=== PATIENT | male | born 2000 | race Caucasian/White ===

== ENCOUNTER 2018-05-29 09:26 | Emergency (ER) | payer OTHER ==
[2018-05-29 10:46] VITALS: BP 136/69
--- NOTE | 2018-05-29 11:38 | UC ---
Knee Pain HPI - HPI Summary HPI Summary: Pt c/o left knee pain s/p jumping on trampoline and left knee "gave out" while jumping. Now c/o pain with weight bearing, bending knee, and walking up stairs. - History of Current Complaint Chief Complaint: UCLowerExtremity Stated Complaint: LT KNEE INJURY Time Seen by Provider: 05/29/18 11:29 Hx Obtained From: Patient Onset/Duration: Sudden Onset, Lasting Days, Still Present Severity Initially: Moderate Severity Currently: Moderate Pain Intensity: 6 Character: Dull, Aching Aggravating Factor(s): Movement, Weight Bearing, Prolonged Standing, Stairs Alleviating Factor(s): Rest Associated Signs And Symptoms: Positive: Swelling Able to Bear Weight: Yes - minimal - Risk Factors Septic Arthritis Risk Factor: Negative Gout Risk Factor: Male - Allergies/Home Medications Allergies/Adverse Reactions: Allergies Allergy/AdvReac Type Severity Reaction Status Date / Time No Known Allergies Allergy Verified 05/29/18 10:45 PMH/Surg Hx/FS Hx/Imm Hx Previously Healthy: Yes - Surgical History Surgical History: Yes Surgery Procedure, Year, and Place: tonsilectomy. tubes in ears. - Family History Known Family History: Negative: Cardiac Disease, Hypertension, Diabetes - Social History Occupation: Employed Full-time Lives: With Family Alcohol Use: Occasionally Substance Use Type: None Smoking Status (MU): Never Smoked Tobacco Have You Smoked in the Last Year: No - Immunization History Vaccination Up to Date: Yes Review of Systems All Other Systems Reviewed And Are Negative: Yes Constitutional: Positive: Negative Skin: Positive: Negative Eyes: Positive: Negative ENT: Positive: Negative Respiratory: Positive: Negative Cardiovascular: Positive: Negative Gastrointestinal: Positive: Negative Genitourinary: Positive: Negative Motor: Positive: Decreased ROM - left knee c/o pain with ROM Neurovascular: Positive: Negative Musculoskeletal: Positive: Arthralgia, Decreased ROM, Edema, Myalgia Neurological: Positive: Negative Psychological: Positive: Negative Is Patient Immunocompromised?: No Physical Exam Triage Information Reviewed: Yes Appearance: Well-Appearing Vital Signs: Initial Vital Signs Temp 98.3 F 05/29/18 10:41 Pulse 89 05/29/18 10:41 Resp 16 05/29/18 10:41 BP 136/69 05/29/18 10:41 Pulse Ox 99 05/29/18 10:41 Vital Signs Reviewed: Yes Eye Exam: Normal ENT Exam: Normal Dental Exam: Normal Neck exam: Normal Respiratory Exam: Normal Cardiovascular Exam: Normal Musculoskeletal: Positive: Strength Limited @ - left knee, c/o pain with rom,, ROM Limited @, Edema @ - generalized mild swelling,, Other: - negative drawer and varus, valgus Neurological Exam: Normal Psychological Exam: Normal Skin Exam: Normal Knee Pain Course/Dx - Course Course Of Treatment: Pt stated he had crutches at home and that he would f/u wiht orthopedic provider if no improvement - Differential Dx/Diagnosis Differential Diagnosis/HQI/PQRI: Internal Derangement Of Knee, Sprain, Strain Provider Diagnosis: Left knee sprain Discharge - Sign-Out/Discharge Documenting (check all that apply): Patient Departure All imaging exams completed and their final reports reviewed: No Studies - Discharge Plan Condition: Stable Disposition: HOME Patient Education Materials: Knee Pain (ED), Arthralgia (ED), R.I.C.E. Treatment (ED) Forms: *Gen. Provider Communication Referrals: Jonah Freedman MD [Medical Doctor] - If Needed No Primary Care Phys,NOPCP [Primary Care Provider] - Additional Instructions: Please follow up with an Orthopedic provider if your symptoms do not improve in the next 3-4 days. - Billing Disposition and Condition Condition: STABLE Disposition: Home - Attestation Statements Provider Attestation: Per institutional requirements, I have reviewed the chart, however, I was not consulted specifically or made aware of this patient by the midlevel provider. I did not personally evaluate, interact with , or disposition this patient.
== END 2018-05-29 11:48 | disposition home or self-care (01) ==
LOC: UCCORT 09:26
DX: S83.92XA Sprain of unspecified site of left knee, initial encounter (principal); X58.XXXA Exposure to other specified factors, initial encounter; Y93.44 Activity, trampolining; Y92.9 Unspecified place or not applicable
CPT/HCPCS: 99211; G0463

== ENCOUNTER → 2018-07-20 05:48 | Day surgery (SDC) | payer OTHER ==
[~2018-07-20 05:48] MED LIST: Buffered Lidocaine 1% SYRIN* 1 ML/SYRINGE INTRADERM ONE; Bupivacaine 0.5% W/EPI SDV* 30 ML VIAL ONE; Dexamethasone IV* 4 MG/ML 1 ML (4 MG) IV SLOW PU ONE; Dexamethasone IV* 4 MG/ML 1 ML (4 MG) ONE; DiMENhydriNATE IV* 50 MG/ML VIAL IV PUSH PRN; EPINEPHRINE 1 MG/ML 1 ML VIAL ONE; Famotidine IV* 10 MG/ML 2 ML (20 mg) IV ONE; Famotidine IV* 10 MG/ML 2 ML (20 mg) ONE; HYDROcodone/ACETAMIN 5-325 MG* 1 TAB PO PRN; KETAMINE HCL* 50 MG/ML 10 ML VIAL ONE; Ketorolac INJ* 30 MG/ML 1 ML VIAL ONE; Lactated Ringers 1000 ML Bag* 1,000 ML IV SCH; Lidocaine 2% PF * 5 ML VIAL ONE; Midazolam* 1 MG/ML 5 ML VIAL (5 MG) ONE; Naloxone* 0.4 MG/ML 1 ML VIAL IV PRN; Ondansetron INJ* 2 MG/ML VIAL ONE; Propofol* 10 MG/ML 20 ML BTL ONE; ceFAZolin 2 GM PREMIX in ORs 2 GM/50 ML BAG IVPB ONE; fentaNYL* 50 MCG/ML 2 ML VIAL (100 MCG VIAL) IV PRN; fentaNYL* 50 MCG/ML 2 ML VIAL (100 MCG VIAL) ONE; oxyCODONE/Acetamin 5/325 MG* TAB ONE
[2018-07-20] MEDS: oxyCODONE/Acetamin 5/325 MG* TAB PO PRN ×2 (11:37→12:16)
[2018-07-20 13:13] VITALS: BP 150/79
--- NOTE | 2018-07-21 00:02 | OP ---
OPERATIVE REPORT: DATE OF OPERATION: 07/20/18 - [facility] DATE OF : 89 SURGEON: Dr. Agutsin Kay. SCIENTIFIC PROCESS OPERATOR: AMADA Varma. A physician outreach assistant was required for the length of procedure for assistance with patient positioning, knee manipulation, retraction, and closure. ANESTHESIOLOGIST: Dr. Vaughn Galloway. ANESTHESIA: General anesthesia, local anesthesia with 10 cc of Marcaine 0.5% with epinephrine, placed into the subcutaneous tissues about the skin incisions. PRE-OP DIAGNOSES: 1. Left knee anterior cruciate ligament tears. 2. Left knee lateral meniscus tear. POST-OP DIAGNOSES: 1. Left knee anterior cruciate ligament tears. 2. Left knee lateral meniscus tear. OPERATIVE PROCEDURE: 1. Left knee arthroscopic anterior cruciate ligament reconstruction with bone patellar bone autograft. 2. Left knee arthroscopic lateral meniscus repair using All-Inside fixation. ANTIBIOTICS: Ancef 2 g IV. IV FLUIDS: 1300 cc crystalloid. TOURNIQUET TIME: 130 minutes at 300 mmHg, left thigh tourniquet. There was a brief tourniquet holiday during the procedure. UEDW-LX-COFK TIME: 160 minutes. SPECIMEN: None. IMPLANTS: Mitek Rigoberto and Rigoberto Leticia biocomposite screw 9 x 23 mm in the femur and 10 x 23 mm screw in the tibia. I also used 5 cc of cancellous allograft bone chips. FastFix 360 all-inside fixation x 2. COMPLICATIONS: None. ESTIMATED BLOOD LOSS: Minimal. INDICATIONS FOR PROCEDURE: The patient is a 18-year-old man, who works as banking paralegal, who plays baseball, who sustained an injury on a trampoline a month and half previously on 06/03/18. The patient was seen at an outside hospital and MRI diagnosed an ACL tear, some bone bruises, and a lateral meniscus tear. Reviewed a treatment options. The patient preferred surgery. Discussed risk and potential complications of surgery. Discussed graft types. We opted to go with a bone patellar bone autograft. Discussed lateral meniscus repair versus partial lateral meniscectomy. I told the patient that I would repair the meniscus if it seemed like it might heal, especially given his young age and high activity level. DESCRIPTION OF PROCEDURE: In preoperative holding, the patient signed a written consent. Operative extremity was marked in preoperative holding. The patient was taken back to the operating room and placed supine on operating room table. Sedated and intubated. A tourniquet was placed about the left proximal thigh. A collapsible lateral post was placed along the table. The left lower extremity was prepped and draped. Surgical time-out performed. Esmarch applied and tourniquet elevated to 300 mmHg. Made a left knee anterolateral knee arthroscopy portal using standard technique. I started my diagnostic arthroscopy. The patient had some synovitis visible in the patellofemoral compartment, but no articular cartilage injury in that compartment. Next, moved to the medial compartment. No meniscus injury. No articular cartilage damage. Next moved to the intercondylar notch. The ACL was grossly absent at first view. Next, moved to the lateral compartment. There was some clearly complex tearing and slightly inferior quality meniscus tissue at the posterior horn. The root was intact. The meniscus was intact just along posterior border of the popliteal hiatus. However, between these 2, it was torn. Established an anteromedial knee arthroscopy portal under direct visualization. I next debrided some synovitic tissue about the anterior aspect of the knee. With the knee in a varus position, I evaluated the posterior horn of the lateral meniscus. It was pretty shredded appearing at first. The main component of the tear was longitudinal and peripheral, close to but not at the meniscocapsular junction. However, more centrally, there was some complexity to the tear. The tissue did not overall look very healthy. My options were to do nothing, debride the tear or repair it. I felt that doing nothing, we put this meniscus tissue at risk of tearing more and certainly would make healing difficult. If I performed a posterolateral meniscectomy, the patient would have only minimal meniscal tissue present at this part of the posterior horn making this ineffective subtotal meniscectomy functionally. Therefore, I decided to repair it. Although, tissue was not great, given the patient's young age and the concomitant ACL reconstruction procedure, I thought that he had a relatively good chance of healing it. I next placed 2 Fast-Fix 360 All-Inside stitches. I placed these each through the anterolateral portal. This actually made the posterior horn lateral meniscus very stable. The tissue still would not look incredibly high quality, but there was no unstable tear to it. I probed it and confirmed the stability. I was careful to avoid placing a stitch into the popliteus, then I flexed the knee 90 degrees to avoid a neurovascular bundle with these stitches. With the lateral meniscal repair component of the procedure done, I proceed to the ACL reconstruction. Removed fluid and scope and instruments from the knee. I assembled the [facility] Knee Positioner. I flexed the knee to 90 degrees. I performed an anterior midline longitudinal skin incision. Dissected down to the paratenon. Cut that centrally, anterior longitudinal, reflected it off the patellar tendon. The patellar tendon robust. I used a double blade to cut a 10 mm strip of the central aspect of the patellar tendon. I cut bone blocks with an oscillating saw. The bone block from the patella was about 10 mm x 25 mm. From the tibial tubercle, it was about 10 mm x 35 mm. I harvested the autograft. I moved to the back table to work on the graft. We closed the patellar tendon with buried [id number] stitches using Ethibond 0 suture. Tourniquet was dropped. At the back table, I removed fat from the graft. I used crimpers and a rongeur to contour the bone blocks. The tibial tubercle bone block was especially grooved, which interfered with it is moving through the sizers. Therefore, I made it shorter to approximately 27 mm instead of 35 mm long. I placed 1 FiberWire #5 suture through the proximal bone block and 2 through distal bone block. I placed several whip stitches through the tendon on either side. I held that graft under tension on the back table, moistened with a sponge. Returned to the knee. Replaced Esmarch and tourniquet. The ligament had sustained a distal tear. Ligament ends had displaced much, were found and debrided somewhat. I performed a mild notchplasty, lateral. I made my femoral tunnel. I used as landmarks, the proximal edge of the articular cartilage posteriorly as well as the 130 o'clock position with the knee in 90 degrees of flexion. These were the same. I drilled my Beath pin and then my tunnel with the knee flexed approximately 115 degrees. The nice long tunnel. I removed the detritus with arthroscopic shaver. I returned the knee to 90 degrees of flexion. I used an ACL tibial guide set at 55 degrees. I used all the appropriate landmarks. I placed a Beath pin and then drilled the 10 mm tunnel. I shaved up the detritus. I passed a passing suture, with Prolene through the tunnels. I used these to pass the graft. I tapped and then placed a 9 x 23 mm biocomposite screw anterior to the bone block in the femoral tunnel. There was excellent purchase and tightness in bite of screw. I then fully extended the knee. I tapped and then placed an interference screw. I performed an exam on the knee. The knee ACL still felt loose. I stuck my arthroscope within the knee and found that the screw had pushed the bone block into the knee as can rarely happen. I removed the screw. I debrided some bone at the aperture of the tibial tunnel so I could better visualize the bone block. I re-tapped and placed the screw. The screw had excellent purchase, squeaked when it went in and this clearly did not move the bone block into the knee. I examined the knee. Very tight James's. I stuck my arthroscope in the knee. I liked the position of the ACL in all degrees of knee flexion. I like the tautness of the graft. I viewed the lateral meniscus repair again and it looked excellent. At about this point, we dropped the tourniquet. I closed the soft tissue overlying the tibial tunnel with [id number] stitches using Vicryl 0 suture. We next filled in the bone defects. Proximally, I did so with a bone particles from the contouring I had done earlier with the patient's own bone. In the distal defect, I filled that in with the cancellous allograft available to me. I then closed the paratenon over the entire length of the tendon and over the defects, with running stitch using Vicryl 2-0 suture. Closed the subcutaneous tissue with buried simple stitches using Vicryl 2-0 suture. Closure of the skin of the long incision with a nylon suture, running stitch. Closure of the arthroscopic portal skin incisions with [id number] and 12 stitches using nylon 3-0 suture. A local anesthetic injected into the subcutaneous tissues about the skin incisions. Xeroform, 4x4s, ABDs, sterile Webril, and David bandage from foot to proximal thigh. Cooling unit applied to the knee followed by knee brace locked in extension. The patient was awakened and extubated. DISPOSITION: Percocet as needed for pain control, aspirin x2 weeks for DVT prophylaxis b.i.d., Keflex for 3 days for infection prophylaxis. The patient will start physical therapy immediately according to my protocol and will follow up with me in clinic in 10 to 14 days postoperatively. The patient is toe-touch weightbearing left lower extremity with crutches. [id number]/[facility] #: [id number] MTDD
== END | disposition home or self-care (01) ==
LOC: OR 05:48
PROVIDERS: ATTEND Orthopaedic Surgery
DX: S83.512A Sprain of anterior cruciate ligament of left knee, initial encounter (principal); S83.282A Other tear of lateral meniscus, current injury, left knee, initial encounter; X58.XXXA Exposure to other specified factors, initial encounter; Y93.44 Activity, trampolining; Y92.9 Unspecified place or not applicable; Z72.0 Tobacco use
CPT/HCPCS: A9270-GY; C1713; C1776; J0690; J1100; J1885; J2250; J2405; J2704; J3010